=== PATIENT | female | born 1945 | race Caucasian/White ===

== ENCOUNTER → 2016-05-09 | Outpatient (CLI) | payer OTHER, MEDICARE ==
[~2016-05-09] MED LIST: BONIVA150 MG; IBUPROFEN 600600 M1 PO; PEPCID40 MG PO; PROZAC 20 MG20 M1 PO
== END ==
LOC: RAD 10:00
DX: Z12.31 Encounter for screening mammogram for malignant neoplasm of breast (principal)

== ENCOUNTER → 2018-07-17 | Outpatient (CLI) | payer OTHER, MEDICARE | LOC: RAD 15:29 | DX: Z12.31 Encounter for screening mammogram for malignant neoplasm of breast (principal) ==

== ENCOUNTER → 2020-06-01 | Outpatient (CLI) | payer OTHER | LOC: ULTRA 09:20 | PROVIDERS: ATTEND Family Medicine | DX: R63.4 Abnormal weight loss (principal); R10.11 Right upper quadrant pain ==

== ENCOUNTER → 2020-09-17 | Outpatient (CLI) | payer OTHER | LOC: BC 10:27 | PROVIDERS: ATTEND Family Medicine | DX: Z12.31 Encounter for screening mammogram for malignant neoplasm of breast (principal) ==